=== PATIENT | male | born 1995 | race Caucasian/White ===

== ENCOUNTER 2021-02-01 22:44 | Inpatient (IN) | payer OTHER ==
[~2021-02-01] VITALS: Ht 177.8 cm; Wt 100.0 kg
[2021-02-01] MEDS ORDERED: MELO15TA28 PO (23:16)
[2021-02-01] MEDS ORDERED: GABA-282 PO (23:16)
[2021-02-01] MEDS ORDERED: D31000TA2 PO (23:16)
[2021-02-01] MEDS ORDERED: TRAZ-252 PO (23:16)
[2021-02-01 23:46] LABS: HEMATOCRIT 46.1 % (36.0-47.0); HEMOGLOBIN 15.7 g/dl (12.0-15.5); MEAN CORPUSCULAR HEMOGLOBIN 31.2 pg (27.0-33.0); MEAN CORPUSCULAR HGB CONC 34.1 g/dl (32.0-36.5); MEAN CORPUSCULAR VOLUME 91.5 fl (80.0-96.0); PLATELET COUNT, AUTOMATED 232 10^3/uL (150-450); RED BLOOD COUNT 5.04 10^6/uL (4.00-5.40); WHITE BLOOD COUNT 16.8 10^3/uL (4.0-10.0)
[2021-02-01 23:59] LABS: AMPHETAMINES LEVEL URINE NEGATIVE (NEGATIVE); BARBITURATES URINE NEGATIVE (NEGATIVE); BENZODIAZEPINES URINE NEGATIVE (NEGATIVE); CANNABINOIDS URINE NEGATIVE (NEGATIVE); COCAINE METABOLITE URINE NEGATIVE (NEGATIVE); METHADONE URINE NEGATIVE (NEGATIVE); OPIATES URINE NEGATIVE (NEGATIVE); PHENCYCLIDINE URINE NEGATIVE (NEGATIVE)
[2021-02-02 00:09] LABS: ACETAMINOPHEN LEVEL < 2.0 UG/ML (10.0-30.0); ALBUMIN 4.5 GM/DL (3.2-5.2); ALT/SGPT 95 U/L (12-78); BILIRUBIN,DIRECT 0.1 MG/DL (0.0-0.2); BILIRUBIN,TOTAL 0.5 MG/DL (0.2-1.0); BLOOD UREA NITROGEN 18 MG/DL (7-18); CALCIUM LEVEL 9.3 MG/DL (8.5-10.1); CARBON DIOXIDE LEVEL 25 MEQ/L (21-32); CHLORIDE LEVEL 106 MEQ/L (98-107); CREATININE FOR GFR 1.02 MG/DL (0.55-1.30); ETHYL ALCOHOL (ETHANOL) 0.005 % (0.000-0.010); GLOMERULAR FILTRATION RATE > 60.0 (>60); GLUCOSE, FASTING 106 MG/DL (70-100); POTASSIUM SERUM 3.9 MEQ/L (3.5-5.1); SALICYLATE LEVEL < 1.7 MG/DL (5.0-30.0); SODIUM LEVEL 141 MEQ/L (136-145); TOTAL PROTEIN 7.5 GM/DL (6.4-8.2)
[2021-02-02] MEDS ORDERED: VITATAB73 PO (00:35)
--- OUTSIDE RECORDS SUMMARY | 2021-02-02 00:58 | CCD ---
Author Author [facility] Address Unknown Phone Unavailable Support Name Relationship Address Phone [facility] Next Of Kin [address] [place] [address] Unavailable Re-disclosure Warning The records that you are about to access may contain information from federally-assisted alcohol or drug abuse programs. If such information is present, then the following federally mandated warning applies: This information has been disclosed to you from records protected by federal confidentiality rules (42 CFR part 2). The federal rules prohibit you from making any further disclosure of this information unless further disclosure is expressly permitted by the written consent of the person to whom it pertains or as otherwise permitted by 42 CFR part 2. A general authorization for the release of medical or other information is NOT sufficient for this purpose. The Federal rules restrict any use of the information to criminally investigate or prosecute any alcohol or drug abuse patient.The records that you are about to access may contain highly sensitive health information, the redisclosure of which is protected by Article 27-F of the [facility] Public Health law. If you continue you may have access to information: Regarding HIV / AIDS; Provided by facilities licensed or operated by the [facility] Office of Mental Health; or Provided by the [facility] Office for People With Developmental Disabilities. If such information is present, then the following [facility] mandated warning applies: This information has been disclosed to you from confidential records which are protected by state law. State law prohibits you from making any further disclosure of this information without the specific written consent of the person to whom it pertains, or as otherwise permitted by law. Any unauthorized further disclosure in violation of state law may result in a fine or fci sentence or both. A general authorization for the release of medical or other information is NOT sufficient authorization for further disc losure. Medications No Information Insurance Providers Payer name Policy type / Coverage type Policy ID Covered libertarian ID Covered libertarian's relationship to major Policy Major Plan [facility] [employer] [id number] Problems, Conditions, and Diagnoses No Information Surgeries/Procedures No Information Results No Information Social History No Information
[2021-02-02 01:46] LABS: RSV AMPLIFICATION NEGATIVE (NEGATIVE)
[2021-02-02] MEDS ORDERED: traZODone 50 MG TAB PO PRN (02:10)
[2021-02-02] MEDS ORDERED: MOM 30ML SUSPENSION UDC PO PRN (02:10)
[2021-02-02] MEDS ORDERED: MAALOX 30 ML SUSP *UDC PO PRN (02:10)
[2021-02-02] MEDS ORDERED: ACETAMINOPHEN TAB 650MG DOSE (2X325MG) PO PRN (02:10)
--- OUTSIDE RECORDS SUMMARY | 2021-02-02 02:26 | CCD ---
Author Author [facility] Address Unknown Phone Unavailable Support Name Relationship Address Phone [facility] Next Of Kin [address] [place] [address] Unavailable Re-disclosure Warning The records that you [...] is protected by Article 27-F of the [facility] Public Health law. If you continue you may have access to information: Regarding HIV / AIDS; Provided by facilities licensed or operated by the [facility] Office of Mental Health; or Provided by the [facility] Office for People With Developmental Disabilities. If such information is present, then the following [facility] mandated warning applies: This information has been [...] law may result in a fine or senior living sentence or both. A general authorization for the release of medical or other information is NOT sufficient authorization for further disc losure. Medications No Information Insurance Providers Payer name Policy type / Coverage type Policy ID Covered constitution party ID Covered constitution party's relationship to major Policy Major Plan [facility] [employer] D[employer] [id number] Problems, Conditions, and Diagnoses No Information Surgeries/Procedures No Information Results No Information Social History No Information
[2021-02-02 04:23] VITALS: BP 130/88
[2021-02-02 06:31] VITALS: BP 165/73
[2021-02-02] MEDS ORDERED: MELOXICAM (MOBIC) 7.5 MG TAB PO ONE (14:40)
[2021-02-02] MEDS ORDERED: GABAPENTIN 300 MG CAP PO ONE (14:40)
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
[2021-02-02] MEDS: CitaloPRAM (CeleXA) 20 MG TAB PO SCH (15:57)
[2021-02-02] MEDS: ACETAMINOPHEN 500 MG TAB PO SCH ×2 (15:58→20:58)
[2021-02-02 18:35] VITALS: BP 141/77
[2021-02-02] MEDS: traZODone 100 MG TAB PO PRN (20:58)
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
[2021-02-03 06:48] VITALS: BP 130/60
[2021-02-03] MEDS: CitaloPRAM (CeleXA) 20 MG TAB PO SCH (08:47)
[2021-02-03] MEDS: GABAPENTIN 300 MG CAP PO SCH (08:47)
[2021-02-03] MEDS: ACETAMINOPHEN 500 MG TAB PO SCH ×3 (08:47→21:11)
[2021-02-03 18:16] VITALS: BP 149/83
[2021-02-03] MEDS: traZODone 100 MG TAB PO PRN (21:10)
[2021-02-03] MEDS: DULoxetine 30MG CAPSULE (CYMBALTA) PO SCH (21:10)
[2021-02-03] MEDS: MELOXICAM (MOBIC) 7.5 MG TAB PO SCH (21:11)
[2021-02-04 06:24] VITALS: BP 133/62
[2021-02-04] MEDS ORDERED: HOME MED LIST COMPLETE! XX SCH (08:20)
[2021-02-04] MEDS: DULoxetine 30MG CAPSULE (CYMBALTA) PO SCH ×2 (08:38→21:13)
[2021-02-04] MEDS: GABAPENTIN 300 MG CAP PO SCH (08:40)
[2021-02-04] MEDS: ACETAMINOPHEN 500 MG TAB PO SCH ×4 (08:40→21:50)
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
--- NOTE | 2021-02-04 10:46 | MHIPN ---
[facility] PROGRESS NOTE DATE: 02/03/2021 HISTORY OF PRESENT ILLNESS: Today the patient states that he was more anxious and depressed first when he woke up, but then it has subsided and he feels that he is doing better now. He says that he is beginning to focus on the things that he needs to do. He spoke a little bit more at length about the injuries he had obtained in his legs and ankle. 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 He feels that he is adjusting better to the fact that his has decided to leave him. He denied any suicidal thoughts. MENTAL STATUS EXAM: This patient is alert and oriented times 3, pleasant and cooperative, verbally spontaneous. Eye contact is good. Psychomotor activity is normal. There is no formal thought disorder noted. Mood is "better." Affect full range and appropriate. Patient is not psychotic, suicidal or homicidal. Concentration is fair. Memory intact. Insight and judgment fair. DIAGNOSES: 1. Other specified depressive disorder. 2. Other specified anxiety disorder. 3. Rule out major depression disorder. TREATMENT PLAN: At this point we will continue to monitor the patient for continued elevation and stabilization of his mood and continued resolution of suicidal ideation. I did go ahead and start him on Cymbalta 30 mg twice a day and decided to discontinue the Celexa as I thought that maybe the Cymbalta in addition to stabilizing his mood might be able to help with his chronic pain condition.
[2021-02-04 12:39] LABS: BASO # 0.1 10^3/uL (0.0-0.2); BASO % 0.7 % (0.0-1.0); EOS # 0.1 10^3/uL (0.0-0.5); EOS % 0.6 % (0.0-3.0); HEMATOCRIT 43.7 % (42.0-52.0); LYMPH # 2.3 10^3/uL (1.5-5.0); LYMPH % 24.9 % (24.0-44.0); MEAN CORPUSCULAR HGB CONC 34.3 g/dl (32.0-36.5); MEAN CORPUSCULAR VOLUME 90.3 fl (80.0-96.0); MONO # 0.5 10^3/uL (0.0-0.8); MONO % 5.9 % (2.0-8.0); NEUTROPHILS # 6.2 10^3/uL (1.5-8.5); NEUTROPHILS % 67.6 % (36.0-66.0); PLATELET COUNT, AUTOMATED 241 10^3/uL (150-450); RED BLOOD COUNT 4.84 10^6/uL (4.30-6.10); WHITE BLOOD COUNT 9.1 10^3/uL (4.0-10.0)
[2021-02-04] MEDS: GABAPENTIN 300 MG CAP PO PRN ×2 (15:44→21:12)
[2021-02-04 16:54] VITALS: BP 134/79
[2021-02-04] MEDS: MELOXICAM (MOBIC) 7.5 MG TAB PO SCH (21:12)
[2021-02-05 06:09] VITALS: BP 152/84
[2021-02-05] MEDS: GABAPENTIN 300 MG CAP PO PRN (08:25)
[2021-02-05] MEDS: DULoxetine 30MG CAPSULE (CYMBALTA) PO SCH (08:26)
[2021-02-05] MEDS: ACETAMINOPHEN 500 MG TAB PO SCH (08:26)
--- NOTE | 2021-02-05 10:31 | MHDSPDOC ---
[facility] Discharge Summary Discharge Summary DATE OF ADMISSION: Feb 02, 2021 at 02:09 DATE OF DISCHARGE: February 05, 2021 Discharge diagnoses: 1. MDD, recurrent, moderate 2. Generalized anxiety disorder 2. Unspecified trauma and stressor related disorder 3. Avoidant personality disorder Reason for admission: Per Dr. 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 He was admitted yesterday. Apparently the suddenly told him that she was going to leave him. She apparently had called the [employer] and stated that she was leaving him. Around the [employer] the patient made a gesture to take his medications but he states that was a misunderstanding because he never was trying to kill himself, but he says that he was just trying to vegetable picker his medications since he was being taken to a barracks. They were going to keep him under 72-hour observation. The patient was reported to have been crying in the Emergency Room. The patient does admit that he has been attending the behavioral health clinic at [place] and he has been having increased anxiety and depression. He states that in addition to the having left him, that he is also in the process medically boarded out of the [employer] due to injuries in his lower extremities. In addition, he states that his problems with injury in his leg and then in the ankle in the other leg have made it so that he cannot do the physical workups that he has always enjoyed doing and all of his has been depressing for him. He has been going to the outpatient behavioral health clinic at [place] but the only medication they have prescribed for him is Trazodone 50 mg which has helped but not fully his difficulty with sleep. He states that he does feel hopeless and helpless and has feelings of worthlessness. He denies that he is having suicidal thoughts, stating "I had her there with me". He is referring to his , but now that the is not there, he admits that he had some very suicidal thoughts yesterday but he said after he got some sleep and he spoke to his this morning, he is not having any such thoughts. This is despite the fact that the patient's told him that she knew as soon as she him that she did not want to be with him any longer. The patient also states that he has been having increased anxiety. He states he feels "fidgety and I have palpitations and I can't calm my mind down". He states mostly this happens mostly at nighttime.I did not illicit any hypomanic or manic-like symptoms in this patient." Goes to , says ever since ski accident (spiral fracture), has been having uncontrolled worries, about anything can't control, was worried would get into accident, reports ongoing memories and nightmares "about the event over and over again". Reports suicidal thoughts in context of being dumped by last Thursday, says she called [facility] and patient was brought. Reports history of mood swings, when younger was diagnosed with bipolar reportedly, says was lashing out, says since the ski accident the anger swings have become more frequent. States leg pain makes him worry will get injured again, says since the accident stays at home alot more, denies hypervigilance or avoidance symptoms. Endorses social anxiety. States has low self esteem, "I never see much worth in myself", feels needs praise, reports feelings of emptiness, denies self injuring, has concerns of abandonment. States father was a major stressor growing up. Reports insomnia improved with trazodone, in context of nightmares and anxiety, low mood, anhedonia, low energy, low concentration. Has concern for medboarding from [facility], loosing who reports is obtaining a divorce. Denies recent head injuries, no hx of seizures. Vital signs: See below Consultants involved: See medical H&P by hospitalist Treatment and progress on the unit: Patient was admitted to the [facility] on a legal status and was afforded the following treatment modalities: 1. Individual therapy 2. Group therapy 3. Medication management 4. Milieu therapy 5. Safe environment Hospital course: Patient was admitted to the [facility] on a legal status. Was medically cleared prior to coming up to the [facility]. Initially reported symptoms of depression in context of impending ending of relationship with (she reported requesting divorce), reports this was a surprise and shocking situation that led him to have some suicidal thoughts, but states he has not had suicidal thoughts since this time and has come to terms with ending the relationship. Reported that he is future oriented and plans to work with a software engineer sales to work on the divorce and that he is not sure if he will be met boarded otherwise will deal with his injury. He is future oriented about other options if he leaves the [employer]. Patient was started on Celexa 20 mg but had reported pain so was switched to duloxetine 30 mg twice daily, trazodone 100 mg nightly for sleep as he been reporting insomnia in context of anxiety symptoms not related to charla. Due to daytime pain and anxiety was started on gabapentin which was increased to 600 mg 3 times daily as needed, also had meloxicam 7.5 mg nightly. Patient found medications beneficial and tolerated them well. Denies mood, does report mild anxiety related to sorting out his relationship and situation with the which is like long-term plan and denies intrusive thoughts which improved with treatment. Patient attended groups daily during stay. Patient symptoms i mproved with treatment. On day of discharge patient denied depression, anxiety, insomnia, suicidal or homicidal ideations intent or plan, hallucinations, delusions. [facility]. Patient felt safe for discharge. Was offered continued stay on voluntary admission but refused. Discharge assessment: On today's interview patient is alert and oriented, d ressed appropriately. Hygiene and grooming is well-kept. Smiles on approach and is pleasant and engaged on interview. Denies depression and anxiety. Denies suicidal homicidal ideation, intent or planning. Denies and is not observed with charla or psychotic symptoms of delusions, hallucinations, bizarre thinking, obsessions, paranoia, ruminations, illogical thoughts, flight of ideas or having poor insight or judgment. Patient has normal mentation, declines further hospitalization of voluntary status and meets criteria for discharge today, patient encouraged to return the hospital if symptoms worsen or change and encouraged to call unit if they feel they need provider's questions to be an swered or help with medications or care. Patient was laughing and smiling and pleasant, was also seen talking other patients on the unit and being social during his stay. Spent extensive time talking about his future plans, stressors, coping skills, he needs to work on these skills with therapy, but he plans to follow-up with outpatient provider, denies any medication side effects, states he feels ready to leave and safe. Mental status: Patient is a 25-year old male, who is in no acute distress, in hospital clothing, good hygiene, good eye contact, appears stated age Speech: Is within normal limits, spontaneous, mildly slowed Language skills are within normal limits Thought processes including: linear, logical Thought content: Improved SI in context sleep Abstract reasoning, and computation: fair Description of associations: good Description of abnormal or psychotic thoughts: denies Judgment: fair Insight: Good Orientation: x4 Recent and remote memory: intact Attention span and concentration: decreased Language: mohawk Fund of knowledge: average Mood: "Some anxiety but better" Affect: Euthymic to mildly anxious, full, smiles and laughs Medications on discharge: see medication reconciliation: CSSRS on discharge: Wish to be : No nonspecific active suicidal thoughts: No lifetime attempts: 0 interrupted attempts: 0 aborted attempts: 0 preparatory acts or behavior: None Taking into consideration safety state, status, safety plan, protective factors, modifiable, non-modifiable risk factors patient is at low risk on discharge for suicide according to [place] suicide evaluation. PLAN/FOLLOWUP ARRANGEMENTS: Follow Up Care Education Label Will have therapy follow-up appointment and safety screening upon return to [place], see social work note for appointment details. * Medical * Medical Follow Up [facility] * Established With This Provider Yes * Therapist MR. BARBER * Date Feb 12, 2021 * Time 12:20 * Address of Clinic or Practice [facility] * The amount of time spent in the coordination of care for this patient was approximately 35 minutes. ETOH/Disorder Med Rx ETOH/DRUG DISORDER RX: Offrd @ d/c & pt refused Vital Signs/I&Os Vital Signs Date Time Temp Pulse Resp B/P (MAP) Pulse Ox O2 Delivery O2 Flow Rate FiO2 02/05/21 06:09 97.1 73 18 152/84 (106) 97 Room Air Laboratory Data Labs 24H Laboratory Tests 2 02/04/21 12:19: Immature Granulocyte % (Auto) 0.3, Neutrophils (%) (Auto) 67.6H, Lymphocytes (%) (Auto) 24.9, Monocytes (%) (Auto) 5.9, Eosinophils (%) (Auto) 0.6, Basophils (%) (Auto) 0.7, Neutrophils # (Auto) 6.2, Lymphocytes # (Auto) 2.3, Monocytes # (Auto) 0.5, Eosinophils # (Auto) 0.1, Basophils # (Auto) 0.1, Nucleated Red Blood Cells % (auto) 0.0 CBC/BMP Laboratory Tests 02/04/21 12:19 Medications Scheduled Cholecalciferol (Vitamin D3) (Vitamin D3) 1,000 Unit Tablet, 5,000 UNITS PO DAILY, (Reported) Gabapentin (Gabapentin) 300 Mg Capsule, 300 MG PO QPM, (Reported) Trazodone HCl (Trazodone HCl) 50 Mg Tablet, 50 MG PO QHS, (Reported) Vitamin B Complex (Vitamin B Complex) 1 Each Tablet, 1 TAB PO DAILY, (Reported) Scheduled PRN Meloxicam (Meloxicam) 15 Mg Tablet, 1 TAB PO DAILY PRN for pain for 30 Days, #30 (Reported) Allergies Coded Allergies: No Known Allergies (Unverified , 02/01/21) CAMILLE CASEY MD Feb 05, 2021 10:31
[2021-02-05] MEDS ORDERED: TRAZ-257 PO (12:10)
[2021-02-05] MEDS ORDERED: GABA-282 PO (12:10)
[2021-02-05] MEDS ORDERED: CYMB1CAP5 PO (12:10)
== END 2021-02-05 13:48 | disposition home or self-care (01) | DRG 885 ==
LOC: M ED 22:44 → M ED INP 02-02 02:09 → M PSY 02-02 03:25
PROVIDERS: ADMIT Student in an Organized Health Care Education/Training Program; ATTEND Student in an Organized Health Care Education/Training Program
DX: F33.1 Major depressive disorder, recurrent, moderate (principal); F41.1 Generalized anxiety disorder; F60.6 Avoidant personality disorder; F43.10 Post-traumatic stress disorder, unspecified; Z63.5 Disruption of family by separation and divorce; Z79.899 Other long term (current) drug therapy